=== PATIENT | female | born 1945 | race Caucasian/White ===

== ENCOUNTER → 2017-02-03 | Outpatient (CLI) | payer MEDICARE ==
[~2017-02-03] MED LIST: ALEN70 PO; BLACK COHASH PO; CALC625 PO; CHIA SEEDS PO; FISH1000 PO; MAGNESIUM PO; SIMV5TAB32 PO; STOO100C PO; TAB-TAB PO; UROCTAB2 PO; [UNRECOGNIZED DRUG - OTHER] PO
--- NOTE | 2017-02-04 09:49 | RSPPFT ---
DATE OF PROCEDURE: 02/03/17 COMMENTS: Spirometry with FVC of 2.8 predicted 2.6, FEV1 of 1.7 predicted 2.1, FEV1/FVC ratio 61% predicted 82%. Mild air trapping is present with RV at 2.4 predicted 2.0. DLCO is within the predicted range. IMPRESSION: On the basis of the above, patient has a mild obstructive lung defect.
== END ==
LOC: HRSP 09:17
PROVIDERS: ATTEND Internal Medicine Pulmonary Disease
DX: J44.9 Chronic obstructive pulmonary disease, unspecified (principal)
CPT/HCPCS: 94060; 94726; 94729